=== PATIENT | female | born 1995 | race Caucasian/White ===

== ENCOUNTER 2019-09-14 12:52 | Emergency (ER) | payer OTHER ==
[~2019-09-14] VITALS: Ht 175.3 cm; Wt 72.6 kg
[2019-09-14] MEDS ORDERED: COLACE100 MG PO (13:05)
[2019-09-14 13:08] LABS: URINE BILIRUBIN NEGATIVE (Negative); URINE BLOOD 1+ (Negative); URINE CLARITY CLEAR; URINE COLOR STRAW; URINE GLUCOSE-RANDOM NEGATIVE (Negative); URINE KETONES NEGATIVE (Negative); URINE LEUKOCYTES-REFLEX NEGATIVE (Negative); URINE NITRITE-REFLEX NEGATIVE (Negative); URINE PROTEIN NEGATIVE (Negative); URINE SPECIFIC GRAVITY <= 1.005 (1.005-1.030); URINE UROBILINOGEN 0.2 E.U./dl (0.2-1.0)
[2019-09-14 13:15] LABS: SQUAMOUS 0-3 Few /LPF (0-3); URINE RBC 0-2 Rare /HPF (0-2); URINE WBC-REFLEX 0-5 Rare /HPF (0-5)
[2019-09-14 13:16] LABS: BACTERIA-REFLEX 1-9 Few /HPF (None Seen); CASTS None Seen /LPF (None Seen); CRYSTALS None Seen /LPF (None Seen); MUCUS None Seen strn/LPF (None Seen)
[2019-09-14 15:28] VITALS: BP 116/68
== END 2019-09-14 15:28 | disposition home or self-care (01) ==
LOC: M.ERS 12:52
PROVIDERS: Family Medicine
DX: O03.9 Complete or unspecified spontaneous abortion without complication (principal)